=== PATIENT | male | born 1955 | race Caucasian/White ===

== ENCOUNTER 2016-07-16 09:38 | Emergency (ER) | payer OTHER ==
[2016-07-16] MEDS ORDERED: PROCHLORPERAZINE 10 MG/2 ML VIAL ONE (10:16)
[2016-07-16] MEDS ORDERED: DIPHENHYDRAMINE 50 MG/ML VIAL ONE (10:16)
[2016-07-16] MEDS ORDERED: KETOROLAC 30 MG/ML VIAL ONE (10:17)
== END 2016-07-16 12:30 | disposition home or self-care (01) ==
LOC: ER 09:38
CPT/HCPCS: 36415 ×2; 70450 ×2; 80053 ×2; 85025 ×2; 85610 ×2; 85730 ×2; 96374 ×2; 96375 ×2; 99285; J1885